=== PATIENT | female | born 1940 | race American Indian/Alaskan Native ===

== ENCOUNTER 2017-05-29 10:09 | Outpatient (CLI) | payer MEDICARE ==
--- NOTE | 2017-05-29 11:36 | Mammography Report ---
The bilateral digital screening mammogram with CAD. Comparison study is dated November 22, 2015. Findings: Technical challenges related to the patient's being in a wheelchair results in suboptimal study with limited evaluation of the posterior breast on MLO projection. However, the overall appearance of the breast parenchyma is stable with scattered fibroglandular elements. There are also scattered perivascular benign calcifications with no suspicious features. No architectural distortion is seen. No new masses are present. Impression: Stable benign findings. BI-RADS code: 2. Recommendation: Annual screening.
== END 2017-05-29 10:10 | disposition home or self-care (01) ==
LOC: SPVWC 10:09
PROVIDERS: ATTEND Internal Medicine
DX: Z12.31 Encounter for screening mammogram for malignant neoplasm of breast (principal); I10 Essential (primary) hypertension; E03.9 Hypothyroidism, unspecified; D64.9 Anemia, unspecified; Z87.891 Personal history of nicotine dependence; Z99.3 Dependence on wheelchair
CPT/HCPCS: 77067; G0202

== ENCOUNTER 2019-06-16 13:45 | Outpatient (CLI) | payer MEDICARE ==
--- NOTE | 2019-06-17 11:01 | Mammography Report ---
BILATERAL DIGITAL SCREENING MAMMOGRAM WITH CAD INDICATION: Routine screening mammography. TECHNIQUE: Digital bilateral 2D mammography was obtained in the craniocaudal and mediolateral obliq ue projections were performed with the patient in a wheelchair. This examination was interpreted with the benefit of Computer-Aided Detection analysis. COMPARISON: 05/29/2017 FINDINGS: Breast Density: There are scattered areas of fibroglandular density. No mass, architectural distortion or suspicious calcifications. Scattered bilateral benign calcificat ions. IMPRESSION:No mammographic evidence of malignancy. BI-RADS Category 2: Benign. No mammographic evidence of malignancy. Recommend routine screening ma mmography in one year. A "normal" or negative report should not discourage follow up or biopsy of a clinically significant f inding. A written summary of these findings will be mailed to the patient. The patient will be entered into a mammography reporting system which will generate a reminder letter for the patient's next appointmen t at the appropriate interval. The [employer] recommends yearly mammograms starting at age 40 and continuing as l kevin as a woman is in good health. Breast MRI is recommended for women with an approximate 20-25% or greater lifetime risk of breast cancer, including women with a strong family history of breast or ova armando cancer or who have been treated for Hodgkin's disease. Signer Name: Dennis Daniels MD Signed: 06/17/2019 10:57 AM Workstation Name: [id number]
== END 2019-06-16 13:46 | disposition home or self-care (01) ==
LOC: SPVWC 13:45
PROVIDERS: ATTEND Nurse Practitioner Family
DX: Z12.31 Encounter for screening mammogram for malignant neoplasm of breast (principal); I10 Essential (primary) hypertension; E03.9 Hypothyroidism, unspecified; Z90.710 Acquired absence of both cervix and uterus
CPT/HCPCS: 77067

== ENCOUNTER 2020-08-31 07:12 | Day surgery (SDC) | payer MEDICARE ==
[2020-08-31] MEDS ORDERED: SODIUM CHLORIDE 0.9% 1000 ML 1,000 ML ONE (08:17)
--- NOTE | 2020-08-31 08:28 | Anesthesia Day of Surgery ---
Anesthesia Day of Surgery - Day of Surgery Patient Examined: Yes Patient H&P Reviewed: Yes Patient is NPO: Yes
--- NOTE | 2020-08-31 08:28 | Anesthesia Consultation ---
Anesthesia Consult and Med Hx Date of service: 08/31/20 - Airway Anesthetic Teeth Evaluation: Dentures (full upper and lower) ROM Head & Neck: Adequate Mental/Hyoid Distance: Inadequate Mallampati Class: Class III Intubation Access Assessment: Possibly Difficult - Pulmonary Exam CTA: Yes - Cardiac Exam Cardiac Exam: RRR - Pre-Operative Health Status ASA Pre-Surgery Classification: ASA3 Proposed Anesthetic Plan: MAC - Pulmonary Hx Smoking: Yes (quit 1970s) Hx Respiratory Symptoms: No Home Oxygen Therapy: No - Cardiovascular System Hx Hypertension: Yes (took antihypertensives this morning) Hx Heart Attack/AMI: No Hx Percutaneous Transluminal Coronary Angioplasty (PTCA): No - Central Nervous System CVA: No - Gastrointestinal Hx Gastroesophageal Reflux Disease: No - Endocrine Hx Renal Disease: No Hx Liver Disease: No Hx Insulin Dependent Diabetes: No Hx Non-Insulin Dependent Diabetes: No Hx Hypothyroidism: Yes (took synthroid this morning) - Hematic Hx Anemia: Yes - Other Systems Hx Cancer: Yes (hx uterine cancer ) Hx Obesity: Yes (BMI 50) - Additional Comments Anesthesia Medical History Comments: No hx anesthetic complications. Colonoscopy for rectal bleeding.
[2020-08-31] MEDS ORDERED: SODIUM CHLORIDE 0.9% 1000 ML 1,000 ML IV SCH (08:30)
[2020-08-31] MEDS ORDERED: propofoL 200 MG/20 ML VIAL IV ONE ×2 (09:22→09:44)
[2020-08-31] MEDS ORDERED: LIDOCAINE MPF (2%) 20 MG/1 ML VIAL 5 ML ONE (09:23)
--- NOTE | 2020-08-31 10:01 | Short Stay Summary ---
Short Stay Documentation Date of service: 08/31/20 Narrative H&P: The patient presents for diagnostic colonoscopy to evaluate hematochezia. - History Past Medical History: hypertension, hypothyroidism, other (History of endometrial cancer. Morbid obesity. Non ambulatory due to osteoarthritis.) Past Surgical History: cholecystectomy, hysterectomy, total knee replacement - Allergies and Medications Current Medications: Allergies No Known Allergies Allergy (Verified 03/09/14 11:08) Home Medications Medication Instructions Recorded Confirmed Last Taken Type Latanoprost 0.005% 1 drop OU DAILY 03/09/14 08/31/20 08/30/20 19:00 History Levothyroxine [Synthroid] 1 tab PO DAILY 03/09/14 08/31/20 08/31/20 06:00 History amLODIPine 1 drop PO BID 03/09/14 08/31/20 08/31/20 06:00 History Atorvastatin [Lipitor Tab] 10 mg PO DAILY 08/31/20 08/31/20 08/30/20 17:00 History Cyclobenzaprine [Flexeril] 10 mg PO QHS 08/31/20 08/31/20 08/29/20 History Docusate Sodium [Colace] 100 mg PO BID 08/31/20 08/31/20 08/29/20 History Dorzolamide HCl/Timolol Maleat 10 ml OP DAILY 08/31/20 08/31/20 08/30/20 History [Cosopt Eye Drops] Hydrocortisone [Hydrocortisone 30 gm RC PRN PRN 08/31/20 08/31/20 08/30/20 History 2.5% RECTAL CREAM] Multivit-Min/Iron/Folic/Lutein 1 each PO DAILY 08/31/20 08/31/20 08/24/20 History [Centrum Silver Women Tablet] Polyethylene Glycol 3350 [Miralax] 1 dose PO PRN PRN 08/31/20 08/31/20 Unknown History Active Medications Sodium Chloride (Nacl 0.9% 1000 Ml) 1,000 mls @ 50 mls/hr IV DIRECT MARCIE - Physical exam General appearance: no acute distress, well-nourished, obese HEENT: Atraumatic, PERRLA, EOMI, Mucous membr. moist/pink Lungs: Clear to auscultation, Normal air movement Breasts: deferred Heart: Regular rate, Normal S1, Normal S2, No murmurs Gastrointestinal: normoactive bowel sounds, no tenderness, no distended, no masses, no organomegaly, obese Female Genitourinary: deferred Rectal Exam: normal exam-external/orifice, normal rectal tone, no mass Extremities: no ischemia, pulses intact, pulses symmetrical, abnormal (reduced ROM of lower extremities, bilateral lymphedema) Neurological: Normal speech, Strength at 5/5 X4 ext, Normal tone, Sensation intact, Cranial nerves 3-12 NL, Other (Non ambulatory) - Brief post op/procedure progress note Date of procedure: 08/31/20 Findings: see dictation Estimated blood loss: none Pathology: none Condition: stable - Disposition Condition at discharge: Good Disposition: DC-01 TO HOME OR SELFCARE - Discharge Diagnoses (1) Hematochezia Status: Acute Short Stay Discharge Plan Activity: advance as tolerated Weight Bearing Status: Weight Bear as Tolerated Diet: regular Follow up with: CAR BERNSTEIN JR, MD [Primary Care Provider] - 7 Days
--- NOTE | 2020-08-31 10:04 | Operative Report ---
Operative Report Operative Report: Date of procedure: 08/31/2020 Preprocedure diagnosis: Recent hematochezia Post procedure diagnosis: Mild sigmoid diverticulosis. Procedure: Colonoscopy to the cecum Endoscopist: Dr. Joseph Anesthesia: Monitored anesthesia care per anesthesia department Estimated blood loss: 0 Medications: Monitored anesthesia care. See separate report by anesthesia for details. After careful discussion of the nature and purpose of the procedure as well as details of the technique risks benefits and alternatives the patient gave consent. Please see recent history and physical from the office. The patient was placed in the left lateral decubitus position and medicated per anesthesia. A rectal exam was performed sphincter tone was normal there were no masses palpable. The [employer] 570 scope was passed transanally and advanced under continuous direct vision without difficulty to the cecum. The colon was well prepared. The cecum was normal. The ascending colon was normal and on forward and retroflexed views. The transverse colon was normal. There were scattered diverticula in the sigmoid colon. The descending colon was normal. The rectum was normal on forward and retroflexed views. The procedure was well-tolerated overall and the patient was observed in recovery. Conclusions: Scattered sigmoid diverticula, otherwise normal study. Plan: Observation. Conservative care given advanced age and disability with as needed follow-up. Signed electronically: Hema Joseph M.D.
--- NOTE | 2020-08-31 12:44 | Post Anesthesia Evaluation ---
- Post Anesthesia Evaluation Patient Participated: Yes Airway Patent: Yes Stable Respiratory Function: Yes Nausea/Vomiting: No Temp > 96.8F: Yes Pain Manageable: Yes Adequeate Hydration: Yes Anesthesia Complications: No
[2020-08-31 13:26] VITALS: BP 114/80
== END 2020-08-31 13:36 | disposition home or self-care (01) ==
LOC: GIO 07:12
PROVIDERS: ATTEND Internal Medicine Gastroenterology
DX: K92.1 Melena (principal); K57.30 Diverticulosis of large intestine without perforation or abscess without bleeding; H40.9 Unspecified glaucoma; E78.00 Pure hypercholesterolemia, unspecified; I10 Essential (primary) hypertension; K21.9 Gastro-esophageal reflux disease without esophagitis; E66.9 Obesity, unspecified; Z90.710 Acquired absence of both cervix and uterus; M19.90 Unspecified osteoarthritis, unspecified site; E03.9 Hypothyroidism, unspecified; Z91.81 History of falling; Z98.890 Other specified postprocedural states; Z79.899 Other long term (current) drug therapy; Z87.891 Personal history of nicotine dependence; Z86.718 Personal history of other venous thrombosis and embolism; Z90.49 Acquired absence of other specified parts of digestive tract; Z85.42 Personal history of malignant neoplasm of other parts of uterus
CPT/HCPCS: 45378; J2704; J7030